=== PATIENT | female | born 1985 | race Two or more races ===

== ENCOUNTER 2016-11-02 08:49 | Emergency (ER) | payer OTHER ==
[2016-11-02 08:56] VITALS: RESP 16; O2SAT 96
[2016-11-02 09:17] LABS: COLOR YELLOW; LEUKOCYTE ESTERASE,URINE 2+ (NEGATIVE); NITRITE,URINE NEGATIVE (NEGATIVE)
[2016-11-02 09:29] LABS: BACTERIA TRACE /hpf (NONE SEEN); MUCUS 1+ /lpf (NONE-1+); RBC,URINE 15-25 /hpf (0-3); WBC,URINE 15-25 /hpf (0-3)
--- NOTE | 2016-11-02 09:47 | EDPHY ---
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 This is a healthy 31-year-old female from [facility] who was evaluated in the emergency department 3 days ago. At that time she was complaining of low back and pelvic pain. Her evaluation included laboratory studies that showed and elevated white blood cell count, abdominal pelvic ultrasound, and CT scan (negative for appendicitis). A pelvic exam was performed. She was diagnosed with bacterial vaginosis and started on Flagyl which she has been taking as prescribed. The pain has actually improved but she notes some right flank pain and abdominal bloating. This morning she had hematuria. She has not had significant dysuria or frequency. She had fever a few days ago but none recently. No vomiting. No diarrhea. REVIEW OF SYSTEMS: A ten point review of systems was performed and is negative with the exception of the items mentioned in the HPI. Source: Patient Exam Limitations: No limitations - Personal History LMP (Females 10-55): 1-7 Days Ago Current Tetanus/Diphtheria Vaccine: Unsure Current Tetanus Diphtheria and Acellular Pertussis (TDAP): Unsure - Medical/Surgical History Hx Asthma: No Hx Chronic Respiratory Disease: No Hx Diabetes: No Hx Cardiac Disease: No Hx Renal Disease: No Hx Cirrhosis: No Hx Alcoholism: No Hx HIV/AIDS: No Hx Splenectomy or Spleen Trauma: No Other PMH: thyroid - Social History Smoking Status: Never smoked Additional Social History: She lives in [facility]. - Physical Exam Exam: General Appearance: Alert. Vital signs reviewed. Eyes: Pupils equal and round, no conjunctival injection, no discharge. Anicteric. ENT, Mouth: Mucous membranes are moist, no oropharyngeal erythema or edema. Neck: No lymphadenopathy, supple. Respiratory: Lungs are clear to auscultation; no wheezes, rales, or rhonchi. Cardiovascular: Regular rate and rhythm; no murmur, rub, or gallop. Gastrointestinal: Abdomen is soft with tenderness in the suprapubic area, no guarding, no masses or organomegaly, bowel sounds normal. Skin: Warm and dry, no rashes on exposed skin, normal color. Back: Mild right CVAT. Extremities: No lower extremity edema. Neurological: Alert and oriented. Moving all four extremities easily and equally. Psychiatric: Normal affect. Constitutional: Initial Vital Signs Temperature (C) 36.5 C 11/02/16 08:53 Heart Rate 88 11/02/16 08:53 Respiratory Rate 16 11/02/16 08:53 Blood Pressure 109/75 11/02/16 08:53 O2 Sat (%) 96 11/02/16 08:53 O2 Delivery Mode Room Air Allergies/Adverse Reactions: No Known Allergies Allergy (Unverified 10/29/16 10:28) Home Medications: Medication Instructions Recorded Levothyroxine [Synthroid 100 mcg 100 mcg PO DAILY06 10/29/16 (*)] Metronidazole 500 mg PO BID #14 tablet 10/29/16 levOFLOXACIN [levAQUIN (RX)] 750 mg PO DAILY #7 tab 11/02/16 Medical Decision Making ED Course/Re-evaluation: Urinalysis positive for urinary tract infection. She has some flank tenderness. I am concerned about early pyelonephritis. She does not have nausea and will be able to take oral medications. She is not febrile here today. Am starting her on Levaquin with the thought that this will treat upper tract infection, if needed. Cultures are pending. She has some suprapubic tenderness, no right lower quadrant tenderness I do not think that this is appendicitis. On the 29 of October she had a CT scan that was negative for appendicitis and I do not feel that further imaging is needed today. She will continue her treatment for bacterial vaginosis. I do not suspect PID. - Data Points Microbiology Results: MICROBIOLOGY 11/02/16 09:24 Urine,Clean Catch Urine Culture - Preliminary Four [place] Types Medications Given: Discontinued Medications Ceftriaxone Sodium/Dextrose (Rocephin 1 Gm (Premix)) 50 mls @ 100 mls/hr IV EDNOW ONE PRN Reason: Protocol Stop: 11/02/16 10:28 Last Admin: 11/02/16 10:39 Dose: 50 mls Sodium Chloride (Ns) 1,000 mls @ 0 mls/hr IV ONCE ONE PRN Reason: Wide Open Stop: 11/02/16 10:48 Last Admin: 11/02/16 10:48 Dose: 1,000 mls Departure - Departure Disposition: Home, Routine, Self-Care Clinical Impression: Acute pyelonephritis Condition: Good Instructions: Urinary Tract Infection in Women (ED), Kidney Infection (ED) Additional Instructions: I am starting you on an antibiotic that will treat a urine infection that also involves her kidney. This antibiotic is called Levaquin. You take it once daily for 7 days. You have received an antibiotic in the emergency department today and do not need to start the new antibiotic until tomorrow morning. If you develop any new problems such as persistent fever, vomiting, worsening pain--you will need to be re-evaluated. Adult Pain & Fever Control: We recommend Acetaminophen (Tylenol) and Ibuprofen (Motrin,Advil) for pain and fever control. When fever is high or pain severe, both drugs can be used at the same time, but at different intervals. Please note the time differences. Your dose is: Acetaminophen 650mg every 4 to 6 hours Ibuprofen 400mg every 8 hours with food OR Note: do not take Acetaminophen with Hydrocodone (Vicodin, Lortab) or Oycodone (Percocet). These medications also contain Acetaminophen. No more than 3000mg of Acetaminophen should be taken in 24 hours (for an adult). Usted comenzara a sailaja un antibiotico que tratara la infeccion urinaria que tambien envuelve los rinones. Nayana antibiotico es llamado Levaquin. Tomelo edwige vez al cheo por 7 ash. Usted recibio un antibiotico en el departamento de emergencias el cheo de y no necesita comenzar el antibiotico nuevo hasta manana por la manana. Control De Dolor y Fiebre: Les recomendamos Acetaminofina (Tylenol) y Ibuprofeno (Motrin, Advil) para dolor y control de la fiebre. Cuando la fiebre es wilber o el dolor es nika, ambas drogas puede ser usadas a la misma vez. Por favor tenga en cuenta la diferencia de horarios en el cual deben ser tomadas. [place] dosis es: Acetaminofina [650]mg cada 8 horas Ibuprofeno [400]mg cada 8 horas con comida No tome Acetaminofina con Hydrocodone (Vicodin, Lortab) o Oxycodone (Percocet. Estas medicinas tambien contienen Acetaminofina. No mas de 4000mg de Acetaminofina deben ser tomados en 24 horas. Referrals: NONE *PRIMARY CARE P,. [Primary Care Provider] - As per Instructions Prescriptions: levOFLOXACIN [levAQUIN (RX)] 750 mg PO DAILY #7 tab Print Language: Israeli
[2016-11-02] MEDS ORDERED: NS 1,000 ML IV ONE (10:47)
[2016-11-02 11:15] VITALS: BP 128/78; PULSE 94; TEMP 99
== END 2016-11-02 11:12 | disposition home or self-care (01) ==
DX: N10 Acute pyelonephritis (principal); B96.89 Other specified bacterial agents as the cause of diseases classified elsewhere
CPT/HCPCS: 96365; J0696